=== PATIENT | female | born 1940 | race Caucasian/White ===

== ENCOUNTER → 2021-05-20 | Outpatient (CLI) | payer MEDICARE, OTHER ==
--- NOTE | 2021-05-20 16:46 | RAD ---
DXA BONE DENSITY AXIAL History: Reason: POST MENPAUSAL / Spl. Instructions: / History: Comparison: None. TECHNIQUE: Dual energy x-ray absorptiometry of the lumbar spine and right hip was performed. T-score of average bone mineral density based was calculated based on standard deviations above or below the expected young adult normal value. Diagnostic definitions were established by the [employer] z[employer]. FINDINGS: The average bone mineral density associated with L1-L4 is 1.104 g/cm^2, corresponding with a T-score of -0.6. The average total bone mineral density associated with right hip is 0.6-0 g/cm^2, corresponding with a T-score of -2.7. Right femoral neck T score -2.0 Refer to the worksheets for full detail. IMPRESSION: 1. Osteoporosis. Average bone mineral density yields a T-score of -2.5 or less. Fracture risk is hig h. Electronically signed by: Noah Soares DO (05/20/2021 4:43 PM) [id number]
== END ==
LOC: DXRAD 11:44
PROVIDERS: ATTEND Family Medicine
DX: M81.8 Other osteoporosis without current pathological fracture (principal); Z78.0 Asymptomatic menopausal state
CPT/HCPCS: 77080